=== PATIENT | male | born 1990 | race Caucasian/White ===

== ENCOUNTER 2019-12-15 22:13 | Emergency (ER) | payer BC ==
[2019-12-15] MEDS ORDERED: Tetracaine HCl/PF 0.5% 4 ML Bottle EYERT ONE (22:51)
[2019-12-15] MEDS ORDERED: Fluorometholone 0.1% Ophth Susp 5 ML Bottle EYERT STA (22:52)
[2019-12-15] MEDS ORDERED: Diphtheria,Pertussis(Acell),Tetanus Vaccine 0.5 ML Syringe IM ONE (23:04)
[2019-12-15] MEDS ORDERED: Ciprofloxacin 0.3% Oint 3.5 GM Tube EYERT STA (23:04)
[2019-12-15] MEDS ORDERED: Ibuprofen 600 MG Tab PO ONE (23:04)
--- NOTE | 2019-12-15 23:18 | EDM.PDOC ---
ED HPI GENERAL MEDICAL PROBLEM - General Chief Complaint: Eye Problems Stated Complaint: OBJECT IN RT EYE Time Seen by Provider: 12/15/19 22:45 - History of Present Illness INITIAL COMMENTS - FREE TEXT/NARRATIVE: HISTORY AND PHYSICAL: History of present illness: Is a 29-year-old gentleman who presents ER today with foreign body sensation and discomfort from his right eye. Patient reports approximate 3 hours ago he was working when he felt foreign body sensation in his right eye. Patient irrigated his eye however he still is experiencing discomfort. Patient denies any loss of vision or visual disturbances. Patient's tetanus status is not up-to-date. Review of systems: As per history of present illness and below otherwise all systems reviewed and negative. Past medical history: As per history of present illness and as reviewed below otherwise noncontributory. Surgical history: As per history of present illness and as reviewed below otherwise noncontributory. Social history: No reported history of drug or alcohol abuse. Family history: As per history of present illness and as reviewed below otherwise noncontributory. Physical exam: Constitutional: Patient is oriented to person, place, and time. Appears well- developed and well-nourished. No distress. HEENT: Moist mucous membranes Head: Normocephalic and atraumatic Eyes: Right eye exhibits no discharge. Left eye exhibits no discharge. No scleral icterus Neck: Normal range of motion. No tracheal deviation present. Cardiovascular: Normal rate and regular rhythm. Pulmonary: Effort normal, no respiratory distress. Abdominal: No distention Musculoskeletal: Normal range of motion Neurologic: Alert and oriented to person, place and time. Skin: [place], warm and dry. Psychiatric: Normal mood and affect. Behavior is normal. Judgment and thought content normal. Nursing note and vital signs have been reviewed Patient's ER physical exam is significant for injection of his right eye. Pupils equally round and reactive to light. Extraocular motions intact. Visual acuity is grossly normal. Normal funduscopic exam. Tetracaine applied 3 drops to right eye with 100% relief of the patient's discomfort. Fluorescein stain applied to right eye. There is clear uptake of floor seen at approximately the 1 o'clock position above the pupil. No foreign body. Eyelids everted and no foreign body detected. Diagnostics: Fluorescein stain reveals uptake consistent with corneal abrasion Visual acuity: Therapeutics: Ibuprofen to assist with pain Tdap given secondary to corneal abrasion Ciloxan drops Assessment and plan: Patient's history and physical exam is consistent with a right corneal abrasion. No evidence of ulceration or infection at this time. Patient will be started on Ciloxan drops as well as ibuprofen to assist with his pain. Patient has been instructed to follow-up with an eye doctor in 1 to 2 days for reevaluation. Patient has been instructed to return to the ER sooner if he starts experiencing increasing pain or any change in his visual acuity. Reassessment at the time of disposition demonstrates that the patient is in no acute distress. The patient has remained stable throughout the entire ED visit and is without objective evidence for acute process requiring urgent intervention or hospitalization. The patient is stable for discharge, counseling is provided as documented above, discussed symptomatic treatment and specific conditions for return. I have spoken with the patient/caregive and discussed todays findings, in addition to providing specific details for the plan of care. Questions are answered and there is agreement with the plan. Definitive disposition and diagnosis as appropriate pending reevaluation and review of above. Right Eye Pain Score (Numeric/FACES): 5 - Related Data Allergies Allergy/AdvReac Type Severity Reaction Status Date / Time No Known Allergies Allergy Verified 12/15/19 22:35 Home Meds: Home Meds Ciprofloxacin [Ciloxan 0.3% Ophth Soln] 2 drop EYERT Q2H #1 bottle 12/15/19 [Rx] Ibuprofen 600 mg PO Q6HR PRN #30 tablet 12/15/19 [Rx] Past Medical History - Past Health History Medical/Surgical History: Denies Medical/Surgical History Social & Family History - Tobacco Use Smoking Status *Q: Never Smoker Second Hand Smoke Exposure: No - Recreational Drug Use Recreational Drug Use: No ED ROS GENERAL - Review of Systems Review Of Systems: Comprehensive ROS is negative, except as noted in HPI. ED EXAM GENERAL W FULL EYE - Physical Exam Exam: See Below Course - Vital Signs Last Recorded V/S: Last Vital Signs Temp 97.0 F 12/15/19 22:23 Pulse 90 12/15/19 22:23 Resp 16 12/15/19 22:23 BP 147/93 H 12/15/19 22:23 Pulse Ox 96 12/15/19 22:23 - Orders/Labs/Meds Orders: Active Orders 24 hr Category Date Time Status Vaccines to be Administered [RC] PER UNIT ROUTINE Care 12/15/19 23:04 Active Visual Acuity [Vision Test] [RC] ASDIRECTED Care 12/15/19 22:52 Active Meds: Medications Discontinued Medications Generic Name Dose Route Start Last Admin Trade Name Maru PRN Reason Stop Dose Admin Ciprofloxacin 1 gm 12/15/19 23:04 Ciloxan 0.3% EYERT 12/15/19 23:05 NOW STA Diphtheria/Tetanus/Acell Pertussis 0.5 ml 12/15/19 23:04 Adacel IM 12/15/19 23:05 .ONCE ONE Fluorometholone 1 ml 12/15/19 22:52 Flarex 0.1% Ophth Susp EYERT 12/15/19 22:53 NOW STA Ibuprofen 600 mg 12/15/19 23:04 Motrin PO 12/15/19 23:05 ONETIME ONE Tetracaine HCl 1 ml 12/15/19 22:51 Tetracaine 0.5% Steri-Unit Parisa EYERT 12/15/19 22:52 ASDIRECTED ONE Departure - Departure Time of Disposition: 23:15 Disposition: Home, Self-Care 01 Clinical Impression: Corneal abrasion - Discharge Information Instructions: Corneal Abrasion, [id number] Referrals: PCP,None [Primary Care Provider] - Additional Instructions: Your exam today reveals an abrasion to your right cornea. You have been given a prescription for Ciloxan. Please apply 2 drops every 2 hours while awake for 5 days. Please make an appointment to follow-up with your eye doctor in 1 to 2 days for reevaluation. Please return to the ER sooner if you start experiencing any increasing pain or change in your visual acuity. You have also been given a prescription for ibuprofen to assist with pain and discomfort. The following information is given to patients seen in the emergency department who are being discharged to home. This information is to outline your options for follow-up care. We provide all patients seen in our emergency department with a follow-up referral. The need for follow-up, as well as the timing and circumstances, are variable depending upon the specifics of your emergency department visit. If you don't have a primary care physician on staff, we will provide you with a referral. We always advise you to contact your personal physician following an emergency department visit to inform them of the circumstance of the visit and for follow-up with them and/or the need for any referrals to a consulting specialist. The emergency department will also refer you to a specialist when appropriate. This referral assures that you have the opportunity for follow-up care with a specialist. All of these measure are taken in an effort to provide you with optimal care, which includes your follow-up. Under all circumstances we always encourage you to contact your private physician who remains a resource for coordinating your care. When calling for follow-up care, please make the office aware that this follow-up is from your recent emergency room visit. If for any reason you are refused follow-up, please contact the [facility] Emergency Department at and asked to speak to the emergency department charge nurse. Sepsis Event Note (ED) - Evaluation Sepsis Screening Result: No Definite Risk - Focused Exam Vital Signs: Vital Signs Temp Pulse Resp BP Pulse Ox 12/15/19 22:23 97.0 F 90 16 147/93 H 96 - My Orders Last 24 Hours: My Active Orders 12/15/19 22:52 Visual Acuity [Vision Test] [RC] ASDIRECTED 12/15/19 23:04 Vaccines to be Administered [RC] PER UNIT ROUTINE - Assessment/Plan Last 24 Hours: My Active Orders 12/15/19 22:52 Visual Acuity [Vision Test] [RC] ASDIRECTED 12/15/19 23:04 Vaccines to be Administered [RC] PER UNIT ROUTINE
== END 2019-12-15 23:55 | disposition home or self-care (01) ==
LOC: MW.ED 22:13
DX: S05.01XA Injury of conjunctiva and corneal abrasion without foreign body, right eye, initial encounter (principal); Z23 Encounter for immunization; X58.XXXA Exposure to other specified factors, initial encounter
CPT/HCPCS: 90471; 90715; 99283; A9270

== ENCOUNTER 2020-07-19 09:14 | Emergency (ER) | payer BC ==
--- NOTE | 2020-07-19 09:47 | EDM.PDOC ---
ED HPI GENERAL MEDICAL PROBLEM - General Chief Complaint: Gastrointestinal Problem Stated Complaint: NOT FEELING WELL Time Seen by Provider: 07/19/20 09:45 Source of Information: Reports: Patient History Limitations: Reports: No Limitations - History of Present Illness INITIAL COMMENTS - FREE TEXT/NARRATIVE: Patient is a 29-year-old male who presents today for decreased p.o. intake for the past 3 days. Patient dates that whenever he eats something he feels if he needs to pick the food back up and feels, nauseaalso. Patient that she was seen by his PMD had a work-up with labs and a CAT scan but not received the results. Patient denies any recent travel fever chills abdominal pain. Patient also mentions some throat irritation for that he has some stuffiness.as well was able tolerate secretions and breathing speak easily. Patient also mentioned to the nurse that he has some sores ideation with a plan states is been feeling depressed for the past few days and feels he may harm himself. Throat Pain Score (Numeric/FACES): 6 - Related Data Allergies Allergy/AdvReac Type Severity Reaction Status Date / Time No Known Allergies Allergy Verified 07/19/20 09:33 Home Meds: Home Meds Omeprazole Magnesium [Prilosec Otc] 20 mg PO DAILY 06/21/20 [History] Sucralfate [Carafate] 1 gm PO QID 06/21/20 [History] Desvenlafaxine [Desvenlafaxine ER] 25 mg PO DAILY 07/19/20 [History] Past Medical History - Past Health History Medical/Surgical History: Denies Medical/Surgical History HEENT History: Reports: Allergic Rhinitis Cardiovascular History: Reports: None Respiratory History: Reports: None Gastrointestinal History: Reports: GERD Musculoskeletal History: Reports: None Neurological History: Reports: None Oncologic (Cancer) History: Reports: None - Infectious Disease History Infectious Disease History: Reports: None - Past Surgical History HEENT Surgical History: Reports: None Social & Family History - Tobacco Use Tobacco Use Status *Q: Never Tobacco User - Caffeine Use Caffeine Use: Reports: Coffee ED ROS GENERAL - Review of Systems Review Of Systems: See Below Constitutional: Reports: No Symptoms HEENT: Reports: No Symptoms Respiratory: Reports: No Symptoms Cardiovascular: Reports: No Symptoms Endocrine: Reports: No Symptoms GI/Abdominal: Reports: Nausea, Vomiting : Reports: No Symptoms Musculoskeletal: Reports: No Symptoms Skin: Reports: No Symptoms Neurological: Reports: No Symptoms Psychiatric: Reports: No Symptoms Hematologic/Lymphatic: Reports: No Symptoms Immunologic: Reports: No Symptoms ED EXAM, GI/ABD - Physical Exam Exam: See Below Exam Limited By: No Limitations General Appearance: Alert, WD/WN Eyes: Bilateral: EOMI Throat/Mouth: Normal Inspection. No: Dysphagia Head: Atraumatic Neck: Normal Inspection Respiratory/Chest: No Respiratory Distress, Lungs Clear, Normal Breath Sounds Cardiovascular: Normal Peripheral Pulses, Regular Rate, Rhythm GI/Abdominal Exam: Normal Bowel Sounds, Soft, Non-Tender Neurological: Alert, Oriented, CN II-XII Intact, Normal Cognition, Normal Gait Psychiatric: Depressed Mood #1 Interpretation EKG Date: 07/19/20 Time: 09:35 Rhythm: NSR Rate (Beats/Min): 94 ST-T: Normal Course - Vital Signs Last Recorded V/S: Last Vital Signs Temp 97.6 F 07/19/20 12:08 Pulse 80 07/19/20 12:08 Resp 18 07/19/20 12:08 BP 125/83 07/19/20 12:08 Pulse Ox 98 07/19/20 12:08 - Orders/Labs/Meds Labs: Laboratory Tests 07/19/20 07/19/20 07/19/20 Range/Units 09:57 09:57 10:27 WBC 6.52 (4.0-11.0) K/uL RBC 5.67 (4.50-5.90) M/uL Hgb 16.8 (13.0-17.0) g/dL Hct 47.5 (38.0-50.0) % MCV 83.8 (80.0-98.0) fL MCH 29.6 (27.0-32.0) pg MCHC 35.4 (31.0-37.0) g/dL RDW Std Deviation 37.5 (28.0-62.0) fl RDW Coeff of Margarita 13 (11.0-15.0) % Plt Count 306 (150-400) K/uL MPV 9.50 (7.40-12.00) fL Neut % (Auto) 75.3 (48.0-80.0) % Lymph % (Auto) 15.8 L (16.0-40.0) % [place] % (Auto) 7.8 (0.0-15.0) % Eos % (Auto) 0.9 (0.0-7.0) % Baso % (Auto) 0.2 (0.0-1.5) % Neut # (Auto) 4.9 (1.4-5.7) K/uL Lymph # (Auto) 1.0 (0.6-2.4) K/uL Hawkins # (Auto) 0.5 (0.0-0.8) K/uL Eos # (Auto) 0.1 (0.0-0.7) K/uL Baso # (Auto) 0.0 (0.0-0.1) K/uL Nucleated RBC % 0.0 /100WBC Nucleated RBCs # 0 K/uL Sodium 140 (136-148) mmol/L Potassium 3.5 (3.5-5.1) mmol/L Chloride 102 (98-107) mmol/L Carbon Dioxide 22.8 (21.0-32.0) mmol/L BUN 13 (7.0-18.0) mg/dL Creatinine 1.1 (0.8-1.3) mg/dL Est Cr Clr Drug Dosing 91.03 mL/min Estimated GFR (MDRD) > 60.0 ml/min Glucose 104 (74-106) mg/dL Calcium 9.2 (8.5-10.1) mg/dL Phosphorus 2.8 (2.6-4.7) mg/dL Magnesium 1.9 (1.8-2.4) mg/dL Total Bilirubin 0.6 (0.2-1.0) mg/dL AST 19 (15-37) IU/L ALT 48 (14-63) IU/L Alkaline Phosphatase 80 (46-116) U/L Total Protein 7.9 (6.4-8.2) g/dL Albumin 4.5 (3.4-5.0) g/dL Globulin 3.4 (2.6-4.0) g/dL Albumin/Globulin Ratio 1.3 (0.9-1.6) Lipase 68 L (73-393) U/L Salicylates 0.6 (0-20) mg/dL Urine Opiates Screen (NEGATIVE) Ur Oxycodone Screen (NEGATIVE) Urine Methadone Screen (NEGATIVE) Acetaminophen <2.0 ug/mL Ur Barbiturates Screen (NEGATIVE) Ur Phencyclidine Scrn (NEGATIVE) Ur Amphetamine Screen (NEGATIVE) U Methamphetamines Scrn (NEGATIVE) U Benzodiazepines Scrn (NEGATIVE) U Cocaine Metab Screen (NEGATIVE) U Marijuana (THC) Screen (NEGATIVE) Ethyl Alcohol < 3.0 mg/dL SARS-CoV-2 RNA (JULISSA) NEGATIVE (NEGATIVE) 07/19/20 Range/Units 11:16 WBC (4.0-11.0) K/uL RBC (4.50-5.90) M/uL Hgb (13.0-17.0) g/dL Hct (38.0-50.0) % MCV (80.0-98.0) fL MCH (27.0-32.0) pg MCHC (31.0-37.0) g/dL RDW Std Deviation (28.0-62.0) fl RDW Coeff of Margarita (11.0-15.0) % Plt Count (150-400) K/uL MPV (7.40-12.00) fL Neut % (Auto) (48.0-80.0) % Lymph % (Auto) (16.0-40.0) % [place] % (Auto) (0.0-15.0) % Eos % (Auto) (0.0-7.0) % Baso % (Auto) (0.0-1.5) % Neut # (Auto) (1.4-5.7) K/uL Lymph # (Auto) (0.6-2.4) K/uL Hawkins # (Auto) (0.0-0.8) K/uL Eos # (Auto) (0.0-0.7) K/uL Baso # (Auto) (0.0-0.1) K/uL Nucleated RBC % /100WBC Nucleated RBCs # K/uL Sodium (136-148) mmol/L Potassium (3.5-5.1) mmol/L Chloride (98-107) mmol/L Carbon Dioxide (21.0-32.0) mmol/L BUN (7.0-18.0) mg/dL Creatinine (0.8-1.3) mg/dL Est Cr Clr Drug Dosing mL/min Estimated GFR (MDRD) ml/min Glucose (74-106) mg/dL Calcium (8.5-10.1) mg/dL Phosphorus (2.6-4.7) mg/dL Magnesium (1.8-2.4) mg/dL Total Bilirubin (0.2-1.0) mg/dL AST (15-37) IU/L ALT (14-63) IU/L Alkaline Phosphatase (46-116) U/L Total Protein (6.4-8.2) g/dL Albumin (3.4-5.0) g/dL Globulin (2.6-4.0) g/dL Albumin/Globulin Ratio (0.9-1.6) Lipase (73-393) U/L Salicylates (0-20) mg/dL Urine Opiates Screen NEGATIVE (NEGATIVE) Ur Oxycodone Screen NEGATIVE (NEGATIVE) Urine Methadone Screen NEGATIVE (NEGATIVE) Acetaminophen ug/mL Ur Barbiturates Screen NEGATIVE (NEGATIVE) Ur Phencyclidine Scrn NEGATIVE (NEGATIVE) Ur Amphetamine Screen NEGATIVE (NEGATIVE) U Methamphetamines Scrn NEGATIVE (NEGATIVE) U Benzodiazepines Scrn NEGATIVE (NEGATIVE) U Cocaine Metab Screen NEGATIVE (NEGATIVE) U Marijuana (THC) Screen NEGATIVE (NEGATIVE) Ethyl Alcohol mg/dL SARS-CoV-2 RNA (JULISSA) (NEGATIVE) Departure - Departure Time of Disposition: 13:00 Disposition: DC/Tfer to Acute Hospital 02 Clinical Impression: Suicidal behavior - Discharge Information Referrals: Zelda Mckinley NP [Primary Care Provider] - Forms: ED Department Discharge Sepsis Event Note (ED) - Evaluation Sepsis Screening Result: No Definite Risk - Focused Exam Vital Signs: Vital Signs Temp Pulse Resp BP Pulse Ox 07/19/20 12:08 97.6 F 80 18 125/83 98 07/19/20 11:09 79 16 130/86 97 07/19/20 10:09 97.6 F 95 16 123/90 94 L 07/19/20 09:25 97.6 F 110 H 18 148/73 H 98 - Assessment/Plan Plan: Patient is a 29-year-old male who presents today for decreased p.o. intake and nausea vomiting. Patient also reported some suicide ideation. We will try to medically clear patient and hopefully have patient speak to psychiatry for further evaluation.
[2020-07-19 10:35] LABS: ACETAMINOPHEN <2.0 ug/mL; BLOOD UREA NITROGEN,BUN 13 mg/dL (7.0-18.0); CARBON DIOXIDE,CO2 22.8 mmol/L (21.0-32.0); CHLORIDE,CL 102 mmol/L (98-107); GLUCOSE RANDOM 104 mg/dL (74-106); LIPASE 68 U/L (73-393); POTASSIUM,K 3.5 mmol/L (3.5-5.1); SODIUM,NA 140 mmol/L (136-148)
--- NOTE | 2020-07-19 11:30 | CR ---
INDICATION: Possible food bolus TECHNIQUE: PA and Lateral views soft tissue neck COMPARISON: None available. FINDINGS: The airway is patent without significant focal effacement. The epiglottis is normal in size and configuration. There is no significant prevertebral soft tissue swelling. The cervical vertebral body heights are grossly maintained without acute osseus abnormality. IMPRESSION : Unremarkable cervical soft tissues without evidence of radiopaque bolus within the visualized airway. Consider follow-up with esophagram versus CT of the cervical soft tissues if there is persistent clinical concern. Dictated by Sky Amado MD @ Jul 19 2020 11:26AM Signed by Dr. Sky Amado @ Jul 19 2020 11:29AM
== END 2020-07-19 12:11 ==
LOC: MW.ED 09:14
DX: R45.851 Suicidal ideations (principal); R63.0 Anorexia; R11.2 Nausea with vomiting, unspecified; K21.9 Gastro-esophageal reflux disease without esophagitis; Z79.899 Other long term (current) drug therapy; Z20.822 Contact with and (suspected) exposure to COVID-19
CPT/HCPCS: 36415; 70360; 70360-26; 80053; 80143; 80179; 80305-QW; 80307; 83690; 83735; 84100; 85025; 93005; 99285-25; U0002